=== PATIENT | female | born 1960 | race Caucasian/White ===

== ENCOUNTER 2020-10-24 15:51 | Emergency (ER) | payer MEDICAID ==
[~2020-10-24] VITALS: Ht 149.9 cm; Wt 58.3 kg
[~2020-10-24 15:51] MED LIST: ALBU6.7H3 IH; BAC15O TP; DEXL30CA3 PO; ESCI5TAB PO; FAMC500T PO; HYDR1TAB PO; ZOLP5TAB8 PO
[2020-10-24 16:03] VITALS: BP 114/63
[2020-10-24] MEDS ORDERED: CEPH-585 PO (16:08)
[2020-10-24] MEDS ORDERED: TETanus/Pertussis (Acell)/Diphther VAC/PF (Tdap-Adult) 0.5ml syringe IMVAC ONE (16:10)
[2020-10-24] MEDS ORDERED: ACET-1008 PO (16:22)
== END 2020-10-24 16:27 | disposition home or self-care (01) ==
LOC: ER 15:52
DX: S81.802A Unspecified open wound, left lower leg, initial encounter (principal); L03.116 Cellulitis of left lower limb; J44.9 Chronic obstructive pulmonary disease, unspecified; F15.90 Other stimulant use, unspecified, uncomplicated; Z56.0 Unemployment, unspecified; Z87.11 Personal history of peptic ulcer disease; Z88.8 Allergy status to other drugs, medicaments and biological substances; Z79.2 Long term (current) use of antibiotics; Z79.899 Other long term (current) drug therapy; X58.XXXA Exposure to other specified factors, initial encounter; Y93.89 Activity, other specified; Y92.89 Other specified places as the place of occurrence of the external cause; Y99.8 Other external cause status
CPT/HCPCS: 90471; 90715; 99283; 99291